=== PATIENT | male | born 1985 | race Caucasian/White ===

== ENCOUNTER 2016-08-22 15:35 | Inpatient (IN) | payer BC ==
[~2016-08-22] VITALS: Ht 172.7 cm; Wt 68.0 kg
[~2016-08-22 15:35] MED LIST: ASAC400T PO; VICOTAB4 PO
[2016-08-22 15:37] VITALS: BP 130/67; PULSE 118; RESP 17; TEMP 98.3; O2SAT 97
[2016-08-22] MEDS ORDERED: SODIUM CHLOR 0.9% 1000 ML INJ 1,000 ML IV ONE ×2 (16:08→17:45)
--- NOTE | 2016-08-22 16:13 | PD ---
HPI Chief Complaint: Abnormal Results Time Seen by Provider: 16:09 Travel History International Travel<30 days: No Contact w/Intl Traveler<30days: No Traveled to known affect area: No History of Present Illness HPI 31-year-old male presents to the emergency department for dehydration. Patient is from [place]. He came to [facility] yesterday for the races. Patient is receiving chemotherapy for colon cancer and [place]. He was instructed by his oncologist to come to the emergency department if he felt dehydrated. He does report increased ileostomy output since being on chemotherapy. He reports a history of ulcerative colitis for 10 years prior to being diagnosed with colon cancer. He currently has a port and an ileostomy. He denies any fevers or chills. He states he'll get short of breath with exertion which is his typical symptoms of dehydration. Patient denies any abdominal pain. No vomiting. No chest pain. He states that last time he was dehydrated, he got 1- 2 bags of fluid and felt much better. Patient denies any other complaints at this time. PFSH Past Medical History Chemotherapy: Yes Past Surgical History Eye Surgery: Yes (CHILDHOOD) Social History Alcohol Use: No Tobacco Use: No Substance Use: No Allergies-Medications (Allergen,Severity, Reaction): Coded Allergies: No Known Allergies (Verified , 04/25/08) Reported Meds & Prescriptions Reported Meds & Active Scripts Active Reported Lomotil (Diphenoxylate-Atropine) 2.5-0.025 Mg Tab 1 Tab PO QID PRN Bentyl (Dicyclomine HCl) 10 Mg Cap 10 Mg PO QIDAC & HS Prochlorperazine Maleate 10 Mg Tab 10 Mg PO Q6H PRN Oxycodone (Oxycodone HCl) 5 Mg Tab 5 Mg PO Q4-6H PRN Ferrous Sulfate 325 Mg Tab 325 Mg PO BID Zofran (Ondansetron HCl) 8 Mg Tab 8 Mg PO TID Sudafed 12 Hour (Pseudoephedrine HCl) 120 Mg Tab 120 Mg PO DAILY PRN Simethicone 125 Mg Cap 125 Mg PO QID PRN Daiana Allergy (Fexofenadine HCl) 180 Mg Tab 180 Mg PO DAILY Loperamide (Loperamide HCl) 2 Mg Cap 2 Mg PO DIRECTED PRN One capsule after each loose stool. Not to exceed 8 capsules per day. Review of Systems Except as stated in HPI: all other systems reviewed are Neg Physical Exam Narrative GENERAL: Well-developed well-nourished male patient, afebrile. SKIN: Warm and dry. Port noted to the right chest. HEAD: Normocephalic. Atraumatic. EYES: No scleral icterus. No injection or drainage. NECK: Supple, trachea midline. No JVD or lymphadenopathy. CARDIOVASCULAR: Regular rate and rhythm without murmurs, gallops, or rubs. RESPIRATORY: Breath sounds equal bilaterally. No accessory muscle use. Lungs sounds are clear to auscultation. GASTROINTESTINAL: Abdomen soft, non-tender, nondistended. Patient has ileostomy to the right lower quadrant with liquid brown output. MUSCULOSKELETAL: No cyanosis, or edema. BACK: Nontender without obvious deformity. No CVA tenderness. Data Data Last Documented VS Vital Signs Date Time Temp Pulse Resp B/P Pulse Ox O2 Delivery O2 Flow Rate FiO2 08/22/16 17:50 88 16 132/88 100 Room Air 08/22/16 15:37 98.3 Orders Complete Blood Count With Diff (08/22/16 16:08) Comprehensive Metabolic Panel (08/22/16 16:08) Iv Access Insert/Monitor (08/22/16 16:08) Ecg Monitoring (08/22/16 16:08) Oximetry (08/22/16 16:08) Sodium Chlor 0.9% 1000 Ml Inj (Ns 1000 M (08/22/16 16:08) Sodium Chloride 0.9% Flush (Ns Flush) (08/22/16 16:15) Sodium Chlor 0.9% 1000 Ml Inj (Ns 1000 M (08/22/16 17:45) Admit Order (Ed Use Only) (08/22/16 18:52) Labs Laboratory Tests Test 08/22/16 16:20 White Blood Count 4.8 TH/MM3 Red Blood Count 4.59 MIL/MM3 Hemoglobin 13.5 GM/DL Hematocrit 38.1 % Mean Corpuscular Volume 83.0 FL Mean Corpuscular Hemoglobin 29.4 PG Mean Corpuscular Hemoglobin 35.4 % Concent Red Cell Distribution Width 19.7 % Platelet Count 547 TH/MM3 Mean Platelet Volume 6.6 FL Neutrophils (%) (Auto) 49.5 % Lymphocytes (%) (Auto) 24.5 % Monocytes (%) (Auto) 24.7 % Eosinophils (%) (Auto) 0.6 % Basophils (%) (Auto) 0.7 % Neutrophils # (Auto) 2.4 TH/MM3 Lymphocytes # (Auto) 1.2 TH/MM3 Monocytes # (Auto) 1.2 TH/MM3 Eosinophils # (Auto) 0.0 TH/MM3 Basophils # (Auto) 0.0 TH/MM3 CBC Comment DIFF FINAL Differential Comment Sodium Level 124 MEQ/L Potassium Level 3.7 MEQ/L Chloride Level 85 MEQ/L Carbon Dioxide Level 27.3 MEQ/L Anion Gap 12 MEQ/L Blood Urea Nitrogen 23 MG/DL Creatinine 2.29 MG/DL Estimat Glomerular Filtration 34 ML/MIN Rate Random Glucose 112 MG/DL Calcium Level 8.9 MG/DL Total Bilirubin 0.8 MG/DL Aspartate Amino Transf 45 U/L (AST/SGOT) Alanine Aminotransferase 64 U/L (ALT/SGPT) Alkaline Phosphatase 406 U/L Total Protein 7.5 GM/DL Albumin 2.8 GM/DL [facility] Medical Decision Making Medical Screen Exam Complete: Yes Emergency Medical Condition: Yes Medical Record Reviewed: Yes Differential Diagnosis Dehydration versus anemia versus electrolyte abnormality Narrative Course 31-year-old male presents to the emergency department stating he thinks he is dehydrated from chemotherapy. He has had similar symptoms in the past and received IV fluids w with resolution of symptoms. He denies any other complaints at this time. CBC, CMP are ordered and pending. Patient is given 1 L normal saline IV bolus. CBC shows no acute abnormality. CMP is currently low sodium of 124, BUN/ creatinine 33, creatinine 2.29. The patient states he has no known history of kidney problems. Patient is given 2nd liter IV bolus NS. He states the last time he was dehydrated, he is actually admitted to the hospital and had acute kidney injury that as well. I discussed with the patient admission to the hospital for hyponatremia, acute kidney injury. He is here on vacation to go to the races and is unsure if he wants to stay. Patient agreed on admission. Dr. Peña accepted admission. Diagnosis Primary Impression: Hyponatremia Additional Impressions: Acute kidney injury Colon cancer Qualified Code: C18.9 - Malignant neoplasm of colon, unspecified part of colon Admitting Information Admitting Physician Requests: Admit Viry Wynn Aug 22, 2016 16:12
[2016-08-22] MEDS ORDERED: SODIUM CHLORIDE 0.9% FLUSH 5 ML FLUSH IVF PRN (16:15)
[2016-08-22] MEDS ORDERED: LOPE2CAP PO (16:28)
[2016-08-22] MEDS ORDERED: SIME1CAP17 PO (16:32)
[2016-08-22] MEDS ORDERED: SUDA120T PO (16:32)
[2016-08-22] MEDS ORDERED: FERR325T PO (16:32)
[2016-08-22] MEDS ORDERED: FEXO15TA PO (16:32)
[2016-08-22] MEDS ORDERED: ZOFR8TAB PO (16:32)
[2016-08-22] MEDS ORDERED: OXYC-392 PO ×2 (16:33→16:35)
[2016-08-22] MEDS ORDERED: PROC10TA PO (16:37)
[2016-08-22] MEDS ORDERED: DICY10 PO (16:37)
[2016-08-22] MEDS ORDERED: LOMO2.5T PO (16:37)
--- NOTE | 2016-08-22 16:47 | PD ---
Physical Exam Date Seen by Provider: Aug 22, 2016 Narrative Patient presents with weakness and probable dehydration. He is a chemotherapy patient. Data Data Last Documented VS Vital Signs Date Time Temp Pulse Resp B/P Pulse Ox O2 Delivery O2 Flow Rate FiO2 08/22/16 16:00 16 Room Air 08/22/16 15:37 98.3 118 130/67 97 Orders Complete Blood Count With Diff (08/22/16 16:08) Comprehensive Metabolic Panel (08/22/16 16:08) Iv Access Insert/Monitor (08/22/16 16:08) Ecg Monitoring (08/22/16 16:08) Oximetry (08/22/16 16:08) Sodium Chlor 0.9% 1000 Ml Inj (Ns 1000 M (08/22/16 16:08) Sodium Chloride 0.9% Flush (Ns Flush) (08/22/16 16:15) MDM Supervised Visit with SARA: Yes Narrative Course I, Dr. Malave, have reviewed the advance practice practitioner's documentation and am in agreement, met with the patient face to face, made the diagnosis, and the medical decision making was done by me. *My assessment and Findings: Patient is awake and alert and reports no needs at this time. Martina Malave MD Aug 22, 2016 16:47
[2016-08-22 16:49] LABS: AUTOMATED NEUTROPHIL # 2.4 TH/MM3 (1.8-7.7); BASOPHIL % 0.7 % (0.0-2.0); EOSINOPHIL % 0.6 % (0.0-4.0); HEMATOCRIT 38.1 % (39.0-51.0); HEMO FLAGS DIFF FINAL; LYMPH % 24.5 % (9.0-44.0); LYMPHOCYTE # 1.2 TH/MM3 (1.0-4.8); MEAN CORPUSCULAR HEMOGLOBIN 29.4 PG (27.0-34.0); MEAN CORPUSCULAR HGB CONC 35.4 % (32.0-36.0); MONO % 24.7 % (0.0-8.0); NEUT % 49.5 % (16.0-70.0); PLATELET COUNT 547 TH/MM3 (150-450); RED BLOOD COUNT 4.59 MIL/MM3 (4.50-5.90); RED CELL DISTRIBUTION WIDTH 19.7 % (11.6-17.2); WHITE BLOOD COUNT 4.8 TH/MM3 (4.0-11.0)
[2016-08-22 17:13] LABS: ANION GAP 12 MEQ/L (5-15); AST (GOT) 45 U/L (15-37); BICARBONATE 27.3 MEQ/L (21.0-32.0); BLOOD UREA NITROGEN 23 MG/DL (7-18); CHLORIDE 85 MEQ/L (98-107); GLOMERULAR FILTRATION RATE 34 ML/MIN (>89); POTASSIUM 3.7 MEQ/L (3.5-5.1)
[2016-08-22 17:16] LABS: SODIUM (NA) 124 MEQ/L (136-145)
[2016-08-22 17:17] LABS: ALKALINE PHOSPHATASE 406 U/L (45-117); ALT (GPT) 64 U/L (12-78); TOTAL BILIRUBIN ADULT 0.8 MG/DL (0.2-1.0)
[2016-08-22 17:50] VITALS: BP 132/88; PULSE 88; RESP 16; O2SAT 100
--- NOTE | 2016-08-22 18:59 | HHI.HP ---
HPI Service [facility] Primary Care Physician No Primary Care Physician Admission Diagnosis hyponatremia, SHAKA, colon cancer Diagnoses: (1) SHAKA (acute kidney injury) Diagnosis: Principal (2) Hyponatremia Diagnosis: Principal (3) Colon cancer Diagnosis: Principal Travel History International Travel<30 Days: No Contact w/Intl Traveler <30 Da: No Traveled to Known Affected Are: No History of Present Illness This is a 31-year-old male with a PMH of Ulcerative Colitis, Colon CA on Chemotherapy and s/p Ileostomy who came into the ER w/ complaints of increased output from ostomy. Pt is visiting from [place], was told by Oncologist to go to the ER if he had more output. Denies fever, chills or abdominal pain. On arrival, BP 130/67, HR 118, O2 sat 97% on RA, Afebrile. Currently BP 125/ 86, HR 87. CBC essentially unremarkable. Na 124. BUN 23. Creatinine 2.29. Denies h/o previous renal injury. S/p IVF in ER. Pt reluctant to be admitted, but ultimately agrees. Review of Systems Other ROS: 14 point review of systems otherwise negative. Past Family Social History Past Medical History PMH: Ulcerative Colitis, Colon CA on Chemotherapy and s/p Ileostomy Past Surgical History PAST SURGICAL HISTORY: Ileostomy Allergies: Coded Allergies: No Known Allergies (Verified , 04/25/08) Family History PAST FAMILY HISTORY: Reviewed. No h/o DM or CAD Social History PAST SOCIAL HISTORY: Negative for alcohol, tobacco or drugs. Physical Exam Vital Signs Vital Signs Date Time Temp Pulse Resp B/P Pulse Ox O2 Delivery O2 Flow Rate FiO2 08/22/16 17:50 88 16 132/88 100 Room Air 08/22/16 16:00 16 Room Air 08/22/16 15:37 98.3 118 17 130/67 97 Physical Exam PE: GENERAL: Very pleasant young white male in no acute distress. HEENT: PERRLA, EOMI. No scleral icterus or conjunctival pallor. No lid lag or facial droop. CARDIOVASCULAR: Regular rate and rhythm. No obvious murmurs to auscultation. No chest tenderness to palpation. RESPIRATORY: No obvious rhonchi or wheezing. Clear to auscultation. Breath sounds equal bilaterally. GASTROINTESTINAL: Abdomen soft, non-tender, nondistended. BS normal. Ileostomy in place, no signs of infection. MUSCULOSKELETAL: Extremities without clubbing, cyanosis, or edema. No obvious deformities. NEUROLOGICAL: Awake, alert and oriented x4. No focal neurologic deficits. Moving both upper and lower extremities spontaneously. Laboratory Laboratory Tests Test 08/22/16 16:20 White Blood Count 4.8 Red Blood Count 4.59 Hemoglobin 13.5 Hematocrit 38.1 Mean Corpuscular Volume 83.0 Mean Corpuscular Hemoglobin 29.4 Mean Corpuscular Hemoglobin 35.4 Concent Red Cell Distribution Width 19.7 Platelet Count 547 Mean Platelet Volume 6.6 Neutrophils (%) (Auto) 49.5 Lymphocytes (%) (Auto) 24.5 Monocytes (%) (Auto) 24.7 Eosinophils (%) (Auto) 0.6 Basophils (%) (Auto) 0.7 Neutrophils # (Auto) 2.4 Lymphocytes # (Auto) 1.2 Monocytes # (Auto) 1.2 Eosinophils # (Auto) 0.0 Basophils # (Auto) 0.0 CBC Comment DIFF FINAL Differential Comment Sodium Level 124 Potassium Level 3.7 Chloride Level 85 Carbon Dioxide Level 27.3 Anion Gap 12 Blood Urea Nitrogen 23 Creatinine 2.29 Estimat Glomerular Filtration 34 Rate Random Glucose 112 Calcium Level 8.9 Total Bilirubin 0.8 Aspartate Amino Transf 45 (AST/SGOT) Alanine Aminotransferase 64 (ALT/SGPT) Alkaline Phosphatase 406 Total Protein 7.5 Albumin 2.8 Result Diagram: 08/22/16 1620 08/22/16 1620 Assessment and Plan Problem List: (1) Hyponatremia ICD Code: E87.1 Status: Acute (2) SHAKA (acute kidney injury) ICD Code: N17.9 Status: Acute (3) Colon cancer ICD Code: C18.9 Status: Acute Assessment and Plan A/P: 1. Hyponatremia: Na 124. Likely secondary to dehydration from increased ileostomy output and chronic diarrhea. IVF for hydration, resume home antidiarrheals. Recheck lab in am. Check u/a to eval for underlying UTI. 2. Renal Insufficiency: Presumably acute. Creatinine 2.29, no previous labs for comparison however denies previous renal injury. Check U/a, IVF, repeat labs. 3. Colon CA: Currently on Chemo w/ Oncologist in [place] where he resides. Will resume treatment when he returns home. 4. DVT Prophylaxis: SCD/Teds. 5. Social work for d/c planning as needed. 6. Case discussed w/ ER physician at length. Physician Certification 2 Midnight Certification Type: Admission for Inpatient Services Order for Inpatient Services The services are ordered in accordance with Medicare regulations or non- Medicare payer requirements, as applicable. In the case of services not specified as inpatient-only, they are appropriately provided as inpatient services in accordance with the 2-midnight benchmark. Estimated LOS (days): 2 days is the estimated time the patient will need to remain in the hospital, assuming treatment plan goals are met and no additional complications. Post-Hospital Plan: Home Problem Qualifiers (1) Colon cancer: Qualified Code: C18.9 - Malignant neoplasm of colon, unspecified part of colon Alina Peña MD Aug 22, 2016 18:59
[2016-08-22] MEDS ORDERED: MORPHINE SULFATE 4 MG/ML INJ IV PRN (19:00)
[2016-08-22] MEDS ORDERED: SODIUM CHLORIDE 0.9% FLUSH 5 ML FLUSH FLUSH PRN (19:00)
[2016-08-22] MEDS ORDERED: DIPHENOXYLATE/ATROPINE 2.5 MG/0.025 MG TAB PO PRN (19:00)
[2016-08-22] MEDS ORDERED: ACETAMINOPHEN 325 MG TAB PO PRN (19:00)
[2016-08-22] MEDS ORDERED: SIMETHICONE 125 MG CHEWABLE TAB PO PRN (19:00)
[2016-08-22] MEDS ORDERED: ONDANSETRON HCL 4 MG/2 ML VIAL IVP PRN (19:00)
[2016-08-22] MEDS ORDERED: BISACODYL 10 MG SUPP PR PRN (19:00)
[2016-08-22] MEDS ORDERED: PSEUDOEPHEDRINE 120 MG PO PRN (19:15)
[2016-08-22] MEDS ORDERED: PROCHLORPERAZINE MALEATE 10 MG TAB PO PRN (19:15)
[2016-08-22 19:36] VITALS: BP 125/86; PULSE 87; RESP 16; O2SAT 100
[2016-08-22 20:49] LABS: BACTERIA, URINE RARE /hpf; BLOOD, URINE NEG (NEG); COMMENT (UR) CULT NOT INDICATED; CULTURE IF INDICATED CULT NOT INDICATED; GLUCOSE,URINE NEG (NEG); HYALINE CAST, URINE 11 /lpf (RARE); KETONE, URINE NEG (NEG); MUCUS URINE FEW /lpf (OCC); NITRITE,URINE NEG (NEG); PH, URINE 5.5 (5.0-8.5); SQUAMOUS EPITHELIAL CELL URINE <1 /hpf (0-5); URINE COLOR YELLOW (YELLW/STRAW)
[2016-08-22] MEDS: SODIUM CHLORIDE 0.9% FLUSH 5 ML FLUSH FLUSH SCH (21:00)
[2016-08-22] MEDS: DICYCLOMINE HCL 10 MG CAP PO SCH (21:50)
[2016-08-22] MEDS: FERROUS SULFATE 325 MG (65 MG ELEMENTAL IRON) TAB PO SCH (21:50)
[2016-08-22] MEDS: SODIUM CHLOR 0.9% 1000 ML INJ 1,000 ML IV SCH (21:50)
[2016-08-22 23:00] VITALS: BP 138/85; PULSE 84; RESP 18
[2016-08-23 00:54] VITALS: BP 127/80; PULSE 94; RESP 20; TEMP 97.9; O2SAT 100
[2016-08-23] MEDS ORDERED: MAGN250T11 PO (01:09)
[2016-08-23 04:00] VITALS: BP 117/81; PULSE 80; RESP 20; TEMP 97.6; O2SAT 100
[2016-08-23 06:00] LABS: ALKALINE PHOSPHATASE 318 U/L (45-117); ALT (GPT) 50 U/L (12-78); ANION GAP 8 MEQ/L (5-15); AST (GOT) 33 U/L (15-37); BLOOD UREA NITROGEN 17 MG/DL (7-18); CHLORIDE 94 MEQ/L (98-107); GLOMERULAR FILTRATION RATE 54 ML/MIN (>89); POTASSIUM 3.1 MEQ/L (3.5-5.1); SODIUM (NA) 128 MEQ/L (136-145); TOTAL BILIRUBIN ADULT 0.6 MG/DL (0.2-1.0)
[2016-08-23] MEDS: SODIUM CHLOR 0.9% 1000 ML INJ 1,000 ML IV SCH (06:15)
[2016-08-23] MEDS: DICYCLOMINE HCL 10 MG CAP PO SCH ×2 (06:15→08:48)
[2016-08-23 06:39] LABS: AUTOMATED NEUTROPHIL # 1.5 TH/MM3 (1.8-7.7); BASOPHIL % 1.1 % (0.0-2.0); EOSINOPHIL # 0.1 TH/MM3 (0-0.4); EOSINOPHIL % 2.4 % (0.0-4.0); HEMATOCRIT 32.1 % (39.0-51.0); HEMO FLAGS DIFF FINAL; LYMPH % 33.4 % (9.0-44.0); LYMPHOCYTE # 1.4 TH/MM3 (1.0-4.8); MEAN CELL VOLUME 84.3 FL (80.0-100.0); MEAN CORPUSCULAR HEMOGLOBIN 29.4 PG (27.0-34.0); MEAN CORPUSCULAR HGB CONC 34.8 % (32.0-36.0); MONO % 26.1 % (0.0-8.0); PLATELET COUNT 460 TH/MM3 (150-450); RED BLOOD COUNT 3.81 MIL/MM3 (4.50-5.90); RED CELL DISTRIBUTION WIDTH 20.4 % (11.6-17.2); WHITE BLOOD COUNT 4.1 TH/MM3 (4.0-11.0)
--- NOTE | 2016-08-23 07:41 | HHI.PR ---
Subjective Remarks Patient threatens to live AMA. Objective Vitals Vital Signs Date Time Temp Pulse Resp B/P Pulse Ox O2 Delivery O2 Flow Rate FiO2 08/23/16 04:00 97.6 80 20 117/81 100 08/23/16 00:54 97.9 94 20 127/80 100 08/22/16 23:00 84 18 138/85 08/22/16 19:36 87 16 125/86 100 Room Air 08/22/16 17:50 88 16 132/88 100 Room Air 08/22/16 16:00 16 Room Air 08/22/16 15:37 98.3 118 17 130/67 97 I/O 08/22/16 08/22/16 08/22/16 08/23/16 08/23/16 08/23/16 07:00 15:00 23:00 07:00 15:00 23:00 Intake Total 1000 ml Output Total 1950 ml Balance -950 ml Intake Oral 0 ml IV Total 1000 ml Output Urine Total 200 ml Stool Total 1750 ml # Bowel Movements 1 Result Diagram: 08/23/16 0503 08/23/16 0503 Objective Remarks A/P Problem List: (1) Hyponatremia ICD Code: E87.1 Status: Acute (2) SHAKA (acute kidney injury) ICD Code: N17.9 Status: Acute (3) Colon cancer ICD Code: C18.9 Status: Acute Assessment and Plan 1. Hyponatremia: Na 124. Na 128. Likely secondary to dehydration from increased ileostomy output and chronic diarrhea. IVF for hydration, resume home antidiarrheals. Recheck lab in am. Check u/a to evaluate for underlying UTI. Also noted hypokalemia replaced with KCl PO 2. Renal Insufficiency: Presumably acute. Creatinine 2.29 on admission improving no previous labs for comparison however denies previous renal injury. Check U/a, IVF, repeat labs. 3. Colon CA: Currently on Chemo w/ Oncologist in [place] where he resides. Will resume treatment when he returns home. 4. DVT Prophylaxis: SCD/Teds. CM for d/c planning as needed. Discussed with the nurse Patient did live AMA Problem Qualifiers (1) Colon cancer: Qualified Code: C18.9 - Malignant neoplasm of colon, unspecified part of colon Pati Murray MD Aug 23, 2016 07:41 CM for d/c planning as needed. Discussed with the nurse Problem Qualifiers (1) Colon cancer: Qualified Code: C18.9 - Malignant neoplasm of colon, unspecified part of colon Pati Murray MD Aug 23, 2016 07:41
[2016-08-23] MEDS ORDERED: POTASSIUM CHLORIDE 10 MEQ CONTROLLED RELEASE TAB PO ONE (07:45)
[2016-08-23 08:00] VITALS: BP 127/79; PULSE 87; RESP 18; TEMP 98.5; O2SAT 100
[2016-08-23] MEDS: FERROUS SULFATE 325 MG (65 MG ELEMENTAL IRON) TAB PO SCH (08:48)
[2016-08-23] MEDS: SODIUM CHLORIDE 0.9% FLUSH 5 ML FLUSH FLUSH SCH (08:49)
[2016-08-23] MEDS ORDERED: LORATADINE 10 MG TAB PO SCH (09:00)
== END 2016-08-23 08:56 | disposition left against medical advice (07) | DRG 683 ==
LOC: NEPA 15:35 → NEDA 18:53 → N07B 08-23 00:22
PROVIDERS: ADMIT Hospitalist; ATTEND Hospitalist
DX: N17.9 Acute kidney failure, unspecified (principal); E87.1 Hypo-osmolality and hyponatremia; C18.9 Malignant neoplasm of colon, unspecified; K51.90 Ulcerative colitis, unspecified, without complications; E86.0 Dehydration; E87.6 Hypokalemia
CPT/HCPCS: 80053; 81001; 85025; 96360; 96361; J7030